=== PATIENT | female | born 1985 | race Hispanic/Latino ===

== ENCOUNTER 2017-10-23 13:38 | Outpatient (CLI) | payer MEDICAID, OTHER ==
[2017-10-23 13:44] VITALS: BP 107/62
--- NOTE | 2017-10-23 15:36 | Ultrasound Report ---
FINAL REPORT PROCEDURE: US OB BPP WO NON-STRESS TECHNIQUE: Sonographic evaluation for breathing, movement, tone, and amniotic fluid volume was performed. CPT 70330 HISTORY: decreased movement and vaginal bleeding; GDM COMPARISON: No prior studies are available for comparison. FINDINGS: There is a single living intrauterine gestation currently visualized vertex presentation with heart rate 149 beats per minute. Subjectively the amount of amniotic fluid appears normal. Amniotic fluid volume: Normal-score 2. At least one vertical pocket > 2 cm or more in vertical axis. breathing: Normal-score 2. movement: Normal-score 2. tone: Normal. Score: 8 of 8. IMPRESSION: Normal biophysical profile. 01/11.
== END 2017-10-23 15:20 | disposition home or self-care (01) ==
LOC: TRG 13:38
PROVIDERS: ATTEND Obstetrics & Gynecology
DX: O46.93 Antepartum hemorrhage, unspecified, third trimester (principal); O36.8130 Decreased fetal movements, third trimester, not applicable or unspecified; O47.1 False labor at or after 37 completed weeks of gestation; Z3A.38 38 weeks gestation of pregnancy
CPT/HCPCS: 59025; 76819; 82962

== ENCOUNTER 2017-10-31 23:09 | Inpatient (IN) | payer OTHER ==
[2017-10-31] MEDS ORDERED: SUBLIMAZE ONE (23:26)
[2017-10-31] MEDS ORDERED: LACTATED RINGERS 2,000 ML ONE (23:26)
[2017-10-31] MEDS ORDERED: PITOCin/NS 20 UNIT/1000ML DRIP 20,000 MILLIUNITS/1,000 ML BAG IV ONE (23:44)
[2017-10-31 23:56] LABS: Hematocrit 40.2 % (30.3-42.9); Hemoglobin 13.9 gm/dl (10.1-14.3); Mean Corpuscular HGB Conc 35 % (30-34); Mean Corpuscular Hemoglobin 32 pg (28-32); Mean Corpuscular Volume 92 fl (79-97); Platelet Count 174 K/mm3 (140-440); Red Blood Count 4.37 M/mm3 (3.65-5.03)
[2017-10-31] MEDS ORDERED: XYLOCAINE 2% INFILTRATI ONE (23:56)
[2017-11-01] MEDS ORDERED: PITOCin/NS 20 UNIT/1000ML DRIP 20,000 MILLIUNITS/1,000 ML BAG IV ONE (00:36)
[2017-11-01] MEDS ORDERED: BRETHINE IVP PRN (00:38)
[2017-11-01] MEDS ORDERED: ePHEDrine SULFATE IV PRN (00:38)
[2017-11-01] MEDS ORDERED: STADOL IV PRN (00:38)
[2017-11-01] MEDS ORDERED: SUBLIMAZE IV PRN (00:38)
[2017-11-01] MEDS ORDERED: NARCAN 0.4 MG/1 ML IV PRN (00:38)
[2017-11-01] MEDS ORDERED: BRETHINE SUB-Q PRN (00:38)
[2017-11-01] MEDS ORDERED: MINERAL OIL PO PRN (00:38)
[2017-11-01] MEDS ORDERED: XYLOCAINE 2% INFILTRATI ONE (00:38)
[2017-11-01] MEDS ORDERED: ZOFRAN IV PRN ×2 (00:38→03:22)
--- NOTE | 2017-11-01 00:45 | History and Physical Report ---
History of Present Illness Date of examination: 10/31/17 Date of admission: 10/31/17 23:19 Chief complaint: contractions, rupture of membranes History of present illness: Pt is a 32 year old female DONNA 11/04/17 at 39w3d who presents with regular contractions since 1999 pm on 10/31/17 and rupture of membranes last night after 1999 pm, but unsure time. Pt was noted to be 6-7 cm dilated on admission. She denies vaginal bleeding. She has had care at [facility] since 19 wks complicated by incarceration, h/o cocaine and methamphetamine use outside this , tobacco use, h/o LGA (11 lbs ), Gestational Diabetes A2 on insulin, Abnormal quad screen for trisomy 21 but normal NIPT, Polyhydramnios (09/28/17) and a son that of brain cancer last year. She is GBS negative. Past History Past Medical History: no pertinent history Past Surgical History: D&C Family/Genetic History: diabetes, heart disease, hypertension Social history: IV drug use (h/o cocaine and methamphetamine use outside this ) - Obstetrical History Expected Date of Delivery: 11/04/17 Actual Gestation: 39 Week(s) 4 Day(s) : 5 Para: 3 Hx # Term Pregnancies: 3 Number of Pregnancies: 0 Spontaneous Abortions: 1 Induced : 0 Number of Living Children: 2 Medications and Allergies Allergies Allergy/AdvReac Type Severity Reaction Status Date / Time No Known Allergies Allergy Verified 10/23/17 13:51 Home Medications Medication Instructions Recorded Confirmed Last Taken Type Insulin NPH Human Isophane 16 units SQ HS 10/23/17 10/23/17 10/22/17 21:00 History [Humulin N] 1 Vit-Fe Fumar-FA [ 1 tab PO QDAY 10/23/17 10/23/17 10/23/17 12: 00 History Vitamin] 1 Review of Systems All systems: negative - Vital Signs Vital signs: Vital Signs Pulse Resp BP 87 18 127/60 11/01/17 00:18 11/01/17 00:18 11/01/17 00:18 Temp Pulse Resp BP Pulse Ox 97.3 F L 87 18 127/60 11/01/17 00:25 11/01/17 00:18 11/01/17 00:18 11/01/17 00:18 - Physical Exam Breasts: Positive: deferred Cardiovascular: Regular rate Lungs: Positive: Clear to auscultation Abdomen: Positive: soft (gravid, obese ) Genitourinary (Female): Positive: normal external genitalia Uterus: Positive: enlarged (gravid ) Extremities: Positive: normal - Obstetrical FHR: category 2 Uterine Contraction Monitor Mode: External Cervical Dilatation: 10 Cervical Effacement Percentage: 100 station: +2 Uterine Contraction Pattern: Regular Uterine Tone Measurement Phase: Resting Uterine Contraction Intensity: Strong/Firm Results Result Diagrams: 10/31/17 23:30 Abnormal lab results 10/31/17 Range/Units 23:30 WBC 13.3 H (4.5-11.0) K/mm3 MCHC 35 H (30-34) % All other labs normal. Assessment and Plan A: IUP at 39w3d Second Stage Labor Gestational Diabetes A2 GBS negative H/o incarceration H/o cocaine and methamphetamine use outside this Polyhydramnios Son of brain cancer in 2016 P: Admit to labor and delivery Accuchek Urine drug screen Routine intrapartum care
[2017-11-01] MEDS: PITOCin/NS 20 UNIT/1000ML DRIP 20 UNITS/1,000 ML BAG IV SCH ×2 (00:50→01:08)
--- NOTE | 2017-11-01 00:55 | Procedure Note ---
OB Delivery Note - Delivery Date of Delivery: 10/31/17 Surgeon: ROBYN POLK Estimated blood loss: other (400 mL) - Vaginal Delivery presentation: vertex Delivery position: OA Intrapartum events: PROM->1hr before delivery, precipitous labor- <3hr Delivery induction: none Delivery monitor: external FHT, external uterine Route of delivery: Delivery placenta: spontaneous Episiotomy: none Delivery laceration: 1st degree Delivery repair: vicryl Anesthesia: local Delivery comments: Pt rapidly progressed to complete/complete/+3 and pushed to deliver a viable female over intact perineum via under no anesthesia. Head delivered in the GILES position, followed by shoulders and body. Pt delivered in [place] position and aided by suprapubic pressure to deliver the anterior shoulder. placed on maternal abdomen and bulb suctioned. Cord clamped and cut. Cord blood collected. Placenta delivered spontaneously. Vagina and perineum explored. A first degree perineal laceration was repaired with 2-0 Vicryl in a standard fashion. EBL 400 mL. - Infant A at 1 minute: 7 at 5 minutes: 9 Gender: Female (4409g (9lb 12 oz) @ 2350 pm)
[2017-11-01] MEDS ORDERED: LACTATED RINGERS 1,000 ML IV SCH (01:00)
[2017-11-01] MEDS ORDERED: DERMOPLAST TP PRN ×2 (02:09→03:22)
[2017-11-01] MEDS ORDERED: TUCKS PAD TP PRN ×2 (02:16→03:22)
[2017-11-01 02:34] LABS: Amphetamine Screen,Urine PRESUMPTIVE NEGATIVE; Benzodiazepines Screen,Urine PRESUMPTIVE NEGATIVE; Cannabinoid Screen,Urine PRESUMPTIVE NEGATIVE; Cocaine Screen,Urine PRESUMPTIVE NEGATIVE; Methadone Screen,Urine PRESUMPTIVE NEGATIVE; Opiate Screen,Urine PRESUMPTIVE NEGATIVE
[2017-11-01] MEDS ORDERED: MOTRIN PO PRN (02:50)
[2017-11-01] MEDS ORDERED: PHENERGAN PO PRN (03:22)
[2017-11-01] MEDS ORDERED: SODIUM CHLORIDE FLUSH SYRINGE 10 ML IV PRN (03:22)
[2017-11-01] MEDS ORDERED: PHENERGAN PR PRN (03:22)
[2017-11-01] MEDS ORDERED: SENOKOT S PO SCH (03:22)
[2017-11-01] MEDS ORDERED: TYLENOL PO PRN (03:22)
[2017-11-01] MEDS ORDERED: BENADRYL PO PRN (03:22)
[2017-11-01] MEDS ORDERED: DULCOLAX PR PRN (03:22)
[2017-11-01] MEDS ORDERED: NORCO 5/325 PO PRN (03:22)
[2017-11-01] MEDS ORDERED: LANSINOH TP PRN ×2 (03:22)
[2017-11-01] MEDS ORDERED: PITOCin/NS 20 UNIT/1000ML DRIP 20 UNITS/1,000 ML BAG IV SCH (03:22)
[2017-11-01] MEDS ORDERED: MILK OF MAGNESIA PO PRN (03:22)
--- NOTE | 2017-11-01 08:55 | Progress Note ---
Assessment and Plan - Patient Problems (1) Status post vaginal delivery Current Visit: Yes Status: Acute Plan to address problem: Patient doing well Routine care Subjective - Subjective Date of service: 11/01/17 Interval history: The patient reports improvement in her lochia. Her pain is being better controlled. She denies nausea vomiting. Patient reports: appetite normal, voiding normally, pain well controlled : doing well Objective - Vital Signs Latest vital signs: Vital Signs Temp Pulse Resp BP BP Pulse Ox 11/01/17 08:00 98.1 F 63 20 106/54 96 11/01/17 04:46 98.9 F 74 20 104/54 11/01/17 04:18 20 11/01/17 03:18 18 11/01/17 01:51 98.4 F 77 18 110/55 11/01/17 01:18 72 18 118/58 11/01/17 01:03 85 16 119/64 11/01/17 00:48 71 16 125/79 11/01/17 00:25 97.3 F L 11/01/17 00:18 87 18 127/60 Intake and Output 10/31/17 11/01/17 11/01/17 22:59 06:59 14:59 Intake Total 277.5 Balance 277.5 Intake: IV 37.5 PITOCin/NS 20 UNIT/1000ML 37.5 DRIP 20 units In 1,000 ml @ 125 mls/hr IV [facility] Rx#:[id number] Intake, Free Water 240 Other: # Voids Void 1 1 Weight 87.997 kg Estimated Blood Loss 400 - Exam Uterus: Present: normal, firm - Labs Labs: Abnormal lab results 10/31/17 Range/Units 23:30 WBC 13.3 H (4.5-11.0) K/mm3 MCHC 35 H (30-34) %
[2017-11-01] MEDS: FEOSOL PO SCH ×2 (10:22→21:16)
[2017-11-01] MEDS: PRENATAL VITAMIN PO SCH (10:22)
[2017-11-01] MEDS: COLACE PO SCH ×2 (10:22→21:16)
[2017-11-01 16:33] LABS: Hematocrit 35.3 % (30.3-42.9); Hemoglobin 12.2 gm/dl (10.1-14.3)
[2017-11-01] MEDS: MOTRIN PO SCH (21:15)
[2017-11-02] MEDS: MOTRIN PO SCH ×2 (00:14→05:20)
[2017-11-02] MEDS ORDERED: M-M-R II VACCINE SUB-Q ONE (00:55)
[2017-11-02] MEDS ORDERED: BOOSTRIX IM ONE (06:00)
--- NOTE | 2017-11-02 09:04 | Progress Note ---
Assessment and Plan A/p PPD#1 doing well meet criteria for discharge with f/u in 4 weeks breast feeding without difficulty desires tubal ligation Subjective - Subjective Date of service: 11/02/17 Principal diagnosis: s/p Patient reports: appetite normal, voiding normally, pain well controlled, flatus , ambulating normally [place]: doing well, nursing well Objective - Vital Signs Latest vital signs: Vital Signs Temp Pulse Resp BP BP Pulse Ox 11/02/17 00:00 98.7 F 66 18 101/76 11/01/17 16:53 97.1 F L 70 20 115/68 96 11/01/17 12:07 97.8 F 69 20 109/61 95 Intake and Output 11/01/17 11/02/17 11/02/17 23:59 07:59 15:59 Intake Total 360 Balance 360 Intake: Oral 360 Other: Total, Intake Amount 240 # Voids Void 1 # Bowel Movements 1 - Exam Breasts: Present: normal Cardiovascular: Present: Regular rate, Normal S1 Lungs: Present: Clear to auscultation, Normal air movement Abdomen: Present: normal appearance, soft, normal bowel sounds. Absent: distention, tenderness, guarding Vulva: both: normal Uterus: Present: normal, firm, fundal height below umbilicus. Absent: bogginess , tenderness Extremities: Present: normal Deep Tendon Reflex Grade: Normal +2
--- NOTE | 2017-11-02 09:04 | Discharge Summary ---
Providers - Providers Date of Admission: 10/31/17 23:19 Date of discharge: 11/02/17 Attending physician: ROBYN POLK 11/01/17 03:22 Consult to Library Monitor [CONS] Routine Reason For Exam: assistance with , SNS Primary care physician: ROBYN POLK Hospitalization Reason for admission: active labor Delivery: Episiotomy: none Laceration: none Other procedures: none complications: none Discharge diagnosis: IUP at term delivered Disposition: DC-30 STILL A PATIENT Plan - Provider Discharge Summary Activity: routine, no sex for 6 weeks, no strenuous exercise Diet: routine Instructions: routine Additional instructions: [] Smoking cessation referral if applicable(refer to patient education folder for contact #) [] Refer to [facility]'s [facility] Booklet Call your doctor immediately for: * Fever > 100.5 * Heavy vaginal bleeding ( >1 pad per hour) * Severe persistent headache * Shortness of breath * Reddened, hot, painful area to leg or breast * Drainage or odor from incision. * Keep incision clean and dry at all times and follow doctor's instructions regarding bathing/showering - Follow up plan Follow up: ROBYN POLK MD [Primary Care Provider] - 11/22/17
[2017-11-02] MEDS: COLACE PO SCH (10:53)
[2017-11-02] MEDS: PRENATAL VITAMIN PO SCH (10:53)
[2017-11-02] MEDS: FEOSOL PO SCH (10:53)
[2017-11-02 16:50] VITALS: BP 121/70
== END 2017-11-02 14:20 | disposition home or self-care (01) | DRG 775 ==
LOC: TRG 23:09 → LD 23:19 → TRG 23:19 → OB 11-01 02:03
PROVIDERS: ADMIT Obstetrics & Gynecology; ATTEND Obstetrics & Gynecology
PROC: 10E0XZZ Delivery of Products of Conception, External Approach (ICD-10-PCS; principal; 2017-11-01)
PROC: 0HQ9XZZ Repair Perineum Skin, External Approach (ICD-10-PCS; 2017-11-01)
DX: O24.410 Gestational diabetes mellitus in pregnancy, diet controlled (principal); O70.0 First degree perineal laceration during delivery; Z3A.39 39 weeks gestation of pregnancy; Z37.0 Single live birth; O40.3XX0 Polyhydramnios, third trimester, not applicable or unspecified
CPT/HCPCS: 36415; 80307; 82962; 85014; 85018; 85027; 86592; 86850; 86900; 86901; 99211; G0463; J2590; J3010; J7120